=== PATIENT | female | born 1975 | race Caucasian/White ===

== ENCOUNTER 2023-10-15 12:13 | Observation (INO) | payer BC ==
[2023-10-15] MEDS ORDERED: ACETAMINOPHEN 500 MG TAB PO PRN (14:03)
[2023-10-15 14:33] VITALS: BMI 22.6
[2023-10-15] MEDS: NA CHLORIDE 0.9% 1,000 ML IV SCH (14:48)
[2023-10-15] MEDS: METRONIDAZOLE 500mg IVPB 500 MG/100 ML BAG IV SCH (14:49)
[2023-10-15 14:55] LABS: Absolute Eosinophils 0.2 K/uL (0-0.5); Absolute Lymphocytes (CBC) 1.1 K/uL (0.7-4.9); Absolute Monocytes 0.6 K/uL (0.1-1.3); Absolute Neutrophil 2.8 K/uL (1.8-8.0); Basophils % 0.8 % (0-1.3); Eosinophils % 3.6 % (0-4.4); Hematocrit 43.4 % (36.0-45.0); Hemoglobin 14.8 g/dL (12.0-15.0); Lymphocytes % 23.3 % (15.3-44.8); MCV 85.2 fL (80-100); MPV 7.4 fL (7.6-11.3); Monocytes % 12.2 % (3.3-12.3); Neutrophils % 60.1 % (41.7-73.7); Nucleated Red Blood Cells % 0.1 % (0-0); Platelets 229 thou/uL (152-406); RBC Red Blood Cell Count 5.09 M/uL (3.86-4.86); Red Cell Distribution Width 13.1 % (12.1-15.2)
[2023-10-15 15:27] LABS: Albumin 3.8 g/dL (3.4-5.0); Albumin/Globulin Ratio 1.2 (1.1-1.8); Alkaline Phosphatase 46 U/L (45-117); Anion Gap 7.7 mEq/L (5.0-15.0); BUN Blood Urea Nitrogen 14 mg/dL (7-18); Bicarbonate 28 mEq/L (21-32); Bilirubin Total 0.6 mg/dL (0.2-1.0); Globulin 3.1 g/dL (2.3-3.5); Glomerular Filtration Rate 59 ml/min (=/>90); Glucose Level 86 mg/dL (74-106); Lipase 31 U/L (13-75); Magnesium 2.4 mg/dL (1.6-2.4); Potassium 3.7 mEq/L (3.5-5.1); Protein, Total 6.9 g/dL (6.4-8.2); Sodium Level 139 mEq/L (136-145)
[2023-10-15 15:36] LABS: ALT/SGPT < 14 U/L (13-56); AST/SGOT < 10 U/L (15-37)
[2023-10-15] MEDS: levoFLOXacin 500 MG TAB PO SCH (16:08)
[2023-10-15] MEDS: POTASSIUM CL SA 10 MEQ TAB PO ONE (16:09)
[2023-10-15] MEDS: FAMOTIDINE 20 MG TAB PO SCH (22:31)
--- NOTE | 2023-10-16 04:10 | HP ---
Date of Admission: 10/15/2023 Chief Complaint: Abdominal pain, nausea, vomiting, diarrhea, fever, chills. History Of Present Illness: This is a 47-year-old very pleasant female patient, who came into office today with above-mentioned complaints. The patient reported that on 10/04/2023, she went to [place] and on 10/07/2023, she started to have fever, chills, nausea, vomiting, and diarrhea. Her symptoms lasted for about 24 hours or so and then she got better and was fine until Thursday of this week which is 10/12/2023. She started to have recurrence of her symptoms for maybe another 24 hours or so and got better and as of last night, her symptoms came back and lot worse this time than previous time. Yesterday for entire day, she just had few bites of food and today when I saw her in the afternoon all day today, she did not have anything to eat or drink. The patient is feeling very weak and somewhat lightheaded, tired. Denies any blood in stool. No hematemesis. Her abdominal pain is intermittent and she says that when she has this pain, it is extremely intense and on pain scale, it is 10/10 and says that this pain is worse than childbirth. After she was evaluated at office, decision was made to admit her to the hospital for further evaluation and management of this problem. She is also complaining of feeling very thirsty and has dry mouth. Allergies: PENICILLIN CAUSING HIVES. Medications: Famotidine 20 mg 2 times a day, levothyroxine 75 mcg daily, lisinopril 2.5 mg daily, and she takes semaglutide 0.5 mg subcutaneous injection once a week. Review of Systems: Constitutional: As mentioned above. GI: As mentioned above. All other systems reviewed and negative. Past Medical History: Significant for thyroid nodule, Stacie's thyroiditis, hypothyroidism, gastroesophageal reflux disease, chronic kidney disease stage IIIA, and prior history of recurrent UTI. Past Surgical History: Thyroid biopsy which was benign done last year in 2022, partial hysterectomy in , breast augmentation and abdominoplasty surgery in 2011. Family History: Father , had arthritis, congestive heart failure, hypertension. Mother , had liver cancer, pancreatic cancer, and hypertension. Brother is alive and well, has coronary artery disease, hypertension, and hyperlipidemia. Sister has diabetes. Grandmother had breast cancer. Social History: Negative for smoking and alcohol use. Physical Examination: Vital Signs: At office today, blood pressure 105/73, pulse 76, temperature 97.7, respiratory rate 16, weight 167 pounds, height 72 inches. General: Awake, alert, oriented, not in distress. HEENT: Head atraumatic, normocephalic. Conjunctivae nonerythematous. Sclerae white. Mouth, no thrush or edema noted. Ears/Nose, no mass, lesion, discharge noted. Neck: Supple. No JVD, lymph nodes, bruit, thyromegaly noted. Lungs: Bilateral good equal air entry. Clear to auscultation. No rhonchi. No rales. Heart: Normal heart sounds, no murmur or gallop. Abdomen: Soft. Bowel sounds normal. No guarding, rigidity, distention. No hepatosplenomegaly. No bruit. The patient has moderate tenderness in periumbilical region. Extremities: No leg edema. No calf tenderness. Skin: No rash, ulcer, cellulitis. Lymphatics: No lymph node enlargement in neck, supraclavicular, infraclavicular region. Neuro: No focal neurological deficit. Chest: Unremarkable. External Genitalia: Deferred. Rectal: Deferred. Laboratory Data: White count 4.7, hemoglobin 14.8, platelets 229. Sodium 139, potassium 3.7, chloride 107, bicarb 28, BUN 14, creatinine 1.15, glucose 86, lactic acid less than 0.8. Liver function tests unremarkable. TSH 2.950. Impression: 1. Acute gastroenteritis. 2. Volume depletion. 3. Gastroesophageal reflux disease. 4. Chronic kidney disease stage IIIA. 5. Hypothyroidism. Plan: We will go ahead and admit the patient to the hospital for further evaluation and management of this problem. The patient is appropriate for observation. After she was admitted to the hospital, IV fluid was started. IV antibiotics which is Levaquin and metronidazole will be given per order. We will continue her levothyroxine for hypothyroidism. I have ordered stool for ova and parasite culture as well as Clostridium difficile toxin. I did go back to the hospital to check on her this evening and she was looking already better and feeling better since she started getting this treatment in the hospital. I will see her again tomorrow morning and very likely will be able to discharge her to go home tomorrow with oral antibiotics. Total time spent today was 80 minutes. CHERIE Voice ID: [id number]
[2023-10-16 04:37] LABS: Anion Gap 8.6 mEq/L (5.0-15.0); Potassium 3.6 mEq/L (3.5-5.1)
[2023-10-16] MEDS: LEVOTHYROXINE SOD 0.075 MG TAB PO SCH (05:08)
[2023-10-16] MEDS: POTASSIUM CL SA 10 MEQ TAB PO ONE (08:23)
[2023-10-16 08:33] VITALS: BP 111/61; TEMP 98.1
--- NOTE | 2023-10-16 19:32 | DS ---
Date of Discharge: 10/16/2023 Disposition: Discharged to go home. Physical Examination: HEENT: Unremarkable. Lungs: Clear to auscultation. Heart: Sounds normal. Abdomen: Soft. Bowel sounds normal. No guarding, rigidity, distention. Very minimal periumbilical tenderness, but significantly better today than yesterday. No rebound tenderness. Bowel sounds nor moactive. No distention. No hepatosplenomegaly. No bruit. Extremities: No leg edema. Final Diagnoses: 1.Acute gastroenteritis. 2.Volume depletion. 3.Gastroesophageal reflux disease. 4.Chronic kidney disease stage IIIA. 5.Hypothyroidism. Hospital Course: This is a 47-year-old very pleasant female patient, admitted to the hospital with a bdominal pain, fever, chills, nausea, vomiting, and diarrhea. Please see dictated H and P for more i nformation. After the patient was evaluated in the emergency room, she was admitted to the hospital for observation and IV fluid was started. Empiric IV antibiotic Levaquin and Flagyl were started. R outine blood work was done. Stool test was ordered for culture, ova and parasite, as well as Clostri dium difficile toxin, but unfortunately or fortunately, the patient has not had any single bowel move ment after her admission to the hospital. Symptomatically, she has felt a lot better since her admis mert. This morning, she feels a lot better. She looks lot better compared to yesterday and she is a ble to tolerate clear liquid diet very well. I have instructed her that upon discharge, I would like her to continue to keep herself well hydrated with at least 60 ounces of water a day and she can hav e food juices for liquid diet, Sprite, martin phong, Gatorade, etc., but also to have a soft diet and b land diet for almost a week and was instructed to try and eat food like rice, pasta, potato, bread, e tc for a week and avoid red meat, pork, gale, fried food for 1 week. She was also instructed that i n case if she has trouble tolerating metronidazole because of which side effect, then instead of 1 ta blet 3 times a day, she can take half a tablet 3 times a day, but total duration of the therapy will be 1 week along with Levaquin for 1 week. The patient tells me that every time she takes oral antibi otic, she ends up getting yeast infection and is requesting a prescription for that. In the past, elmer bhakta has used fluconazole as she reports. So, I have instructed her to take 2 doses of fluconazole 1 we ek apart, but to take the first dose only after she starts to have symptoms of yeast infection, then repeat second dose 1 week later. The patient verbalized all this understanding very well and we will see her next week for followup. Discharge Medications And Instructions: 1.Continue all prior home medication except stop lisinopril. 2.Take Levaquin 500 mg p.o. daily for 1 week, take it with food. 3.Metronidazole 500 mg 3 times a day with food for 1 week. 4.Follow up at my office next week. 5.Take fluconazole 150 mg take 1 tablet by mouth at onset of yeast infection and take second dose 1 week later. Laboratory Data: For chemistry yesterday, sodium 139, potassium 3.7, chloride 107, bicarb 28, BUN 14 , creatinine 1.15, glucose 86, lactic acid less than 0.8. Liver function tests unremarkable. TSH 2. 9, lipase 31, and today her chemistry, sodium 140, potassium 3.6, chloride 111, bicarb 24, BUN 10, cr eatinine 1.02, glucose 86. WBC count upon admission was 4.7, hemoglobin 14.8, platelets 229. Total time spent today 40 minutes. MAGDA/MODL Voice ID: [id number] Report ID: [id number]
== END 2023-10-16 09:56 | disposition home or self-care (01) ==
LOC: 2ND 13:39
PROVIDERS: ADMIT Internal Medicine; ATTEND Internal Medicine
DX: K52.9 Noninfective gastroenteritis and colitis, unspecified (principal); E86.9 Volume depletion, unspecified; K21.9 Gastro-esophageal reflux disease without esophagitis; N18.31 Chronic kidney disease, stage 3a; E03.9 Hypothyroidism, unspecified
CPT/HCPCS: 85025; 80048; 36415; 83735; 83605; 84443; 83690; 80053; J7030 ×2; G0379; G0378 ×2